=== PATIENT | female | born 1995 | race Caucasian/White ===

== ENCOUNTER 2020-12-02 21:45 | Emergency (ER) | payer OTHER, SELFPAY ==
[2020-12-02 22:01] VITALS: BP 118/74; PULSE 113; RESP 16; TEMP 36.7; O2SAT 100; BMI 24.7
--- NOTE | 2020-12-02 23:30 | PC.NURSE ---
at bedside for primary eval.
--- NOTE | 2020-12-02 23:31 | ED.GENADULT ---
HPI - General Adult General Chief complaint: General Medical Stated complaint: mutiple complaints Time Seen by Provider: 12/02/20 23:15 Source: patient Mode of arrival: ambulatory Limitations: no limitations History of Present Illness HPI narrative: Patient comes to emergency room complaining of ?not feeling well?. Earlier today, patient was seen at Urgent Care, she was prescribed penicillin for otitis media and for a dental infection that started a month ago. Patient complaining that she was recently told by her PCP that she has livedo reticularis and was told that she may have lupus. Patient complaining of nausea, weakness, fatigue. Patient has been seen and multiple facilities today for the same complaint. Related Data Allergies Allergy/AdvReac Type Severity Reaction Status Date / Time No Known Allergies Allergy Verified 12/02/20 22:06 Review of Systems Review of Systems: Constitutional : No Weight loss, No Fever, No Chills, No Night Sweats, complaining of fatigue, malaise ENT/Mouth : No Hearing loss, complaining of right ear pain, No Nasal Congestion, No sore throat, No Rhinorrhea, No Swallowing Difficulty Eyes: No Eye Pain, No Swelling, No Redness, No Foreign Body, No Discharge, No Vision Changes Cardiovascular : No Chest Pain, No SOB, No Dyspnea on Exertion, No Orthopnea, No Edema, No Palpitations Respiratory : No Cough, No Sputum, No Wheezing, No Smoke Exposure, No Dyspnea Gastrointestinal : Complaining of nausea, Vomiting, No Diarrhea, No Constipation, No abdominal Pain, No Hematochezia, No Melena Genitourinary : no irregular bleeding, No Dysuria, No Urinary Frequency, No Hematuria, No Urinary Incontinence, No Urgency, No Flank Pain, No Urinary Flow Changes, No Hesitancy Musculoskeletal : No joint pain, No Joint Swelling Skin : No Skin Lesions, complaining of weeks of ?livedo reticularis being present Neuro : No Weakness, No Numbness, No Paresthesias, No Loss of Consciousness, No Dizziness, No Headache Psych : No Anxiety/Panic, No Depression, No SI/HI/AH/VH, No Social Issues, Heme/Lymph: No Bruising, No Bleeding,No Lymphadenopathy Endocrine : No Polyuria, No Polydipsia, No Temperature Intolerance PMFSH Past Medical History Medical History delivery delivered No known health problems Social History Social History Advance Directives: No Advance Directives Information Provided: No Patient : No Physical Exam Vital Signs: Vital Signs: Last Vital Signs Temp 98.1 F 12/02/20 22:01 Pulse 113 H 12/02/20 22:01 Resp 16 12/02/20 22:01 BP 118/74 12/02/20 22:01 Pulse Ox 100 12/02/20 22:01 Body Mass Index 24.7 Appearance: Alert. Oriented X3. Sobbing Eyes: Pupils equal, round and reactive to light. ENT: Pharynx normal. Right ear is mildly erythematous, left ear the canal does look a bit swollen but not erythematous Neck: Normal inspection. Neck supple. No lymph nodes noted. CVS: Normal heart rate and rhythm. Pulses normal. Normal S1 and S2 Respiratory: No respiratory distress. Breath sounds normal. No Wheezing. No rales Abdomen: Soft and nontender. No rigidity. No distention. good BS x4 Skin: Skin warm and dry. Mottled in lower extremities Extremities: No edema, see above Neuro: Oriented X 3. No motor deficit. No sensory deficit. Moving all extermities. No slurred speech. Course Course Course Narrative: I was informed by the patient's nurse that the patient started complaining of facial swelling, shortness of breath. I immediately assessed the patient, patient is very anxious, screaming, patient's airway is intact, good lung sounds, no erythema, no rash. I discussed with the patient that her oxygen saturation is perfect, 100% on room air. Patient is no respiratory distress. I discussed with the patient that in a moment the tech and the nurse will be with her shortly. Patient states that she demands IV antibiotics. I discussed with the patient that IV treatment will depend on her lab work. At this time, there does not seem to be a significant otitis media infection. I was informed by the patient's tech that the patient refused labs, that they were taking too long, patient has been in the ER less than 30 minutes. Patient's tech told me that the patient refused blood work, refused COVID test, refused chest x-ray, refused IV placement. I was informed by the patient's nurse that the patient eloped Discharge Plan Discharge Clinical Impression: SOB (shortness of breath), Livedo reticularis, Pain, dental, Otitis media, Anxiety Patient Disposition: Elopement Interventions: ED Discharge Assessment Last Done: 12/03/20 00:02 Discharge Date/Time: 12/03/20 00:11
--- NOTE | 2020-12-03 00:01 | PC.NURSE ---
ekg tech at bedside for labs and Covid. Pt refusing all lab work, states I'm going to [facility]!! NOONE IS DOING ANYTHING FOR ME! Pt calling 911 from her cellphone and leaving the ED AMA.
--- NOTE | 2020-12-03 00:02 | PC.NURSE ---
hydrodynamicist aware.
== END 2020-12-03 00:11 | disposition left against medical advice (07) ==
PROVIDERS: Emergency Provider Emergency Medicine; PCP Nurse Practitioner Family
DX: R06.02 Shortness of breath (principal); H66.93 Otitis media, unspecified, bilateral; K08.89 Other specified disorders of teeth and supporting structures; F41.1 Generalized anxiety disorder; F43.0 Acute stress reaction; R23.1 Pallor
CPT/HCPCS: 99283

== ENCOUNTER 2022-03-11 12:49 | Outpatient (REF) | payer OTHER, SELFPAY ==
--- NOTE | ~2022-03-11 | XR_ITS ---
EXAMINATION: XR WRIST, LEFT CLINICAL INFORMATION: Pain COMPARISON: None TECHNIQUE: 4 views of the left wrist FINDINGS: There is a comminuted intra-articular distal radial fracture. Mild impaction. Slight dorsal angulation of the distal fragment. The carpal rows are well aligned. Soft tissue swelling. XR/XR wrist LT w scaphoid IMPRESSION: Intra-articular distal radial fracture with slight dorsal angulation.
== END 2022-03-11 12:50 | disposition home or self-care (01) ==
LOC: HO.HOSX 12:49
PROVIDERS: Visit Provider Orthopaedic Surgery
DX: S52.502A Unspecified fracture of the lower end of left radius, initial encounter for closed fracture (principal); V89.2XXA Person injured in unspecified motor-vehicle accident, traffic, initial encounter; Y93.9 Activity, unspecified; Y92.9 Unspecified place or not applicable; Y99.9 Unspecified external cause status
CPT/HCPCS: 73110; 99202

== ENCOUNTER 2022-03-13 08:57 | Outpatient (REF) | payer OTHER, SELFPAY ==
--- NOTE | ~2022-03-13 | CT_ITS ---
EXAMINATION: CT WRIST WITHOUT CONTRAST, LEFT CLINICAL INFORMATION: Wrist fracture. COMPARISON: Radiographs 03/11/2022. TECHNIQUE: A noncontrast CT of the left wrist is performed with sagittal and coronal reformats. This CT examination was performed using dose optimization techniques as appropriate, variously including the following: *Automated exposure control *Adjustment of mA and/or kV according to patient size (this includes techniques or standardized protocols for targeted exams where dose is matched to indication/reason for exam; i.e. extremities or head) *Use of iterative reconstruction technique DLP: 99 mGy-cm FINDINGS: No significant change in the alignment or appearance of the comminuted and impacted intra-articular fracture of the distal radius. There is dorsal angulation and up to 5 mm of dorsal displacement. Fragmentation and overriding is most prominent at the dorsal aspect, extending through January's tubercle. A hairline fracture extends along the distal radioulnar joint. No additional fracture is evident. CT/CT wrist LT wo con IMPRESSION: No significant change in the appearance of the comminuted intra-articular fracture of the distal radius with impaction, dorsal angulation and displacement. No additional fractures.
== END 2022-03-13 08:58 | disposition home or self-care (01) ==
LOC: HO.CT 08:57
PROVIDERS: Visit Provider Orthopaedic Surgery
DX: Z01.818 Encounter for other preprocedural examination (principal); S52.502A Unspecified fracture of the lower end of left radius, initial encounter for closed fracture
CPT/HCPCS: 73200; J1100; J2405

== ENCOUNTER 2022-03-13 09:20 | Day surgery (SDC) | payer OTHER, SELFPAY ==
--- NOTE | ~2022-03-13 | FL_ITS ---
EXAMINATION: XR FLUOROSCOPY WITH IMAGES CLINICAL INFORMATION: ORIF left arm COMPARISON: CT left wrist 03/13/2022, radiographs left wrist 03/11/2022 TECHNIQUE: Fluoroscopy performed by Dr. Cristine Dsouza. Fluoroscopy time: 91 seconds. Cumulative Dose: 2.45 mGy. DAP: 0.148 Gycm2. Images: 6. FINDINGS: The comminuted intra-articular fracture distal left radius is reduced with dorsal side plate and multiple screws. Fracture fragments are in near-anatomic alignment. The hardware is intact. There is no dislocation or destructive process. Ulnar variance is neutral. FL/FL guidance in OR IMPRESSION: Status post open reduction internal fixation distal left radial fracture.
[2022-03-13 10:27] VITALS: BMI 31.8
[2022-03-13 10:30] LABS: UPreg QC Valid YES; Urine Pregnancy NEGATIVE (NEGATIVE)
--- NOTE | 2022-03-13 10:34 | PC.NURSE ---
patient arrived very early. chose to wait in waiting room instead of leaving/returning. will bring into sss when space available.
[2022-03-13 11:04] VITALS: BP 145/82; PULSE 87; RESP 18; TEMP 36.5; O2SAT 98
--- NOTE | 2022-03-13 12:10 | P.OP_ITS ---
Operative Note Operative Note Date of Service: 03/13/22 Narrative: Operative Note Narrative: Preop diagnosis: 1. Left Distal radius fracture, comminuted and intra- articular Postop diagnosis: Same Procedure: 1. Left Distal radius fracture open reduction internal fixation, 3 part intra-articular Surgeon: Cristine Dsouza MD Anesthesia: General anesthesia plus regional block Findings: comminuted intra-articular distal radius fracture with significant depression of the lunate facet articular surface. Implants: A 3 hole standard Accu Med volar locking plate, with Five X 2.3 mm locking pegs/screws, and 3 3.5 mm cortical screws Tourniquet time: 80 minutes EBL: 5.0 ml Specimen: None Drains: None Complications: None Disposition: Brought to the recovery room in stable condition Plan: Follow-up in 10-14 days for wound check, suture removal and postop radiographs The patient will be placed in either a short-arm cast Encouraged no lifting of anything heavier than a cell phone. Please encourage active and passive range of motion of the digits. Follow-up at 4-5 weeks postop for repeat radiographs. Indications: The patient is a 26 year old woman with a 2-week-old comminuted intra-articular distal radius fracture . The risks and benefits of operative treatment, including but not limited to risk of damage to blood vessels, nerves, tendons, infection, recurrence, persistent pain or numbness, incomplete resolution of preoperative symptoms, or need for further surgery were discussed with the patient and they wished to proceed with surgery. Procedure: Once consent was obtained patient was brought back to the operating suite and placed in the operating table in a supine position. A regional block was performed by the anesthesia team. Perioperative antibiotics and anesthesia was administered by the anesthesia team. A tourniquet was applied to the proximal aspect of the left upper extremity and the limb was prepped and draped in a standard surgical fashion. The limb was elevated exsanguinated with Esmarch bandage and the tourniquet inflated to 250 mm of mercury for a total tourniquet time of 80 minutes. The FluoroScan was used throughout the case to assess our reduction, and facilitate implant placement. A gentle closed reduction was 1st performed on the patient's left distal radius fracture. The fracture was assessed radiographically before proceeding with the open reduction internal fixation. I then made an 8 cm longitudinal incision over the distal aspect of the flexor carpi radialis tendon. The incision was made through the skin to the subcutaneous tissue using a 15. Blade. we then carefully dissected down to flexor carpi radialis tendon she tenotomy scissors. The FCR tendon sheath was then incised longitudinally using tenotomy scissors under direct visualization. The FCR tendon was then retracted ulnarly. I then made a longitudinal incision in the volar forearm fascia through the floor of FCR tendon sheath using tenotomy scissors under direct visualization. I identified the interval between the radial artery and the flexor tendons. This interval was developed further with my index finger, releasing some of the muscular fibers of the flexor pollicis longus. A dull weatlander retractor was then placed. I then created an ulnarly based flap of the pronator quadratus by releasing the radial and distal edges using a 15. Blade. A Dotson elevator was used to elevate the pronator quadratus from the volar surface of the distal radius. This then revealed to us our distal radius fracture. An open reduction was then performed on our distal radius fracture. the fracture was significantly distal, particularly at the lunate facet where we saw significant compression and depression of the lunate facet articular surface. a small window was created by removing 1 of the small volar cortical bone fragments volar to the lunate facet. I was then able to pass a [place] elevator beneath the lunate facet articular surface and elevate the articular surface. The decision was made to place a 3 hole standard volar locking plate as it would provide for four screws beneath the articular surface. I felt that the locking screw beneath the lunate facet piece could do a good job of holding that portion of the articular surface in a more reduced position. I placed the 3 hole standard Accu Med volar locking plate on the volar surface of the distal radius. I placed a single K-wire through the distal aspect of the plate and into the distal radius. This was assessed using fluoroscopic images. I was satisfied with the placement of our plate. I then placed 5 X 2.3 mm l ocking screws/pegs in the distal aspect of the plate just proximal to the distal radius articular surface by 1st drilling bicortically with a 2.0 mm drill bit, measuring with a depth gauge, and placing the appropriate length locking screws/pegs. The placement of our plate and screws was then assessed again using fluoroscopic images. The once satisfied with the placement of the volar locking plate and screws on the distal aspect of the distal radius, the plate was then reduced to the shaft of the radius. I then placed 3 3.5 mm cortical screws to the proximal aspect of the plate and into the shaft of the radius. This was done by 1st drilling bicortically with a 2.8 mm drill bit, measuring with a depth gauge, and placing the appropriate length screw. Final radiographs were then obtained. The DRUJ was assessed and found to be stable on exam. I was satisfied with our reduction and placement of all implants. At this point the wound was irrigated with normal saline. The pronator quadratus was reduced back over the volar locking plate using some 3-0 Vicryl suture material. The tourniquet was then deflated and hemostasis was obtained with a brief period of local pressure and bipolar and monopolar electrocautery. The subcutaneous layer was then reapproximated using some 4-0 Vicryl suture, and the skin edges were reapproximated using some 5 0 Prolene suture. The wound was then infiltrated with some 0.5% plain ropivacaine for postop pain control. A sterile dressing and a short dorsal splint allowing for active flexion and extension of the digits was applied. The patient appears to have tolerated the procedure well and with no complications. All digits were well vascularized conclusion of the case.
--- NOTE | 2022-03-13 12:10 | MHC.SHP ---
Pre-Procedural Eval Section A Date of Service: 03/13/22 The patient is an INPATIENT: No Changes since office visit: No Cold of Flu in the past 2 weeks, No New Medical Problems, No Changes in Medication and No Patient answered all questions The History & Physical has been completed within 30 days and I have reviewed it.: Yes Section B Chief Complaint: fx of the lower end of left radius Allergies: Allergies Allergy/AdvReac Type Severity Reaction Status Date / Time No Known Allergies Allergy Verified 03/13/22 10:32 Plan I have reviewed the history and physical and performed a pertinent physical examination on my patient. No changes have occurred unless specified.
[2022-03-13 15:35] VITALS: BP 134/91; PULSE 108; RESP 16; TEMP 36.6; O2SAT 100
[2022-03-13 15:40] VITALS: BP 136/94; PULSE 107; RESP 18; O2SAT 98
[2022-03-13] MEDS: fentaNYL citrate/PF 100 MCG/2 ML VIAL 25 MCG IVPUSH ×2 (15:40→15:45)
[2022-03-13] MEDS: LORazepam 1 MG TABLET PO (15:41)
[2022-03-13 15:45] VITALS: BP 119/83; PULSE 98; RESP 20; RESP 22; O2SAT 98
[2022-03-13 15:50] VITALS: BP 112/76; PULSE 94; RESP 20; O2SAT 98
[2022-03-13 16:05] VITALS: BP 121/71; PULSE 94; RESP 20; O2SAT 98
[2022-03-13] MEDS: oxyCODONE HCl Immed Release 5 MG TABLET PO (16:25)
== END 2022-03-13 16:40 | disposition home or self-care (01) ==
PROVIDERS: Anesthesiology; Visit Provider Orthopaedic Surgery
PROC: (CPT 25609; principal; 2022-03-13 13:00)
DX: S52.572A Other intraarticular fracture of lower end of left radius, initial encounter for closed fracture (principal); M79.602 Pain in left arm; I73.00 Raynaud's syndrome without gangrene; V49.9XXA Car occupant (driver) (passenger) injured in unspecified traffic accident, initial encounter; W22.12XA Striking against or struck by front passenger side automobile airbag, initial encounter; Y93.89 Activity, other specified; Y92.410 Unspecified street and highway as the place of occurrence of the external cause; Y99.8 Other external cause status
CPT/HCPCS: 25609; 81025; C1713; J0690; J2250; J2795; J3010

== ENCOUNTER → 2022-03-20 13:04 | Outpatient (BNVA) | payer OTHER, SELFPAY | PROVIDERS: Visit Provider Physician Assistant | DX: S52.502D Unspecified fracture of the lower end of left radius, subsequent encounter for closed fracture with routine healing (principal) | CPT/HCPCS: 29085 ==

== ENCOUNTER 2022-03-28 10:29 | Outpatient (REF) | payer OTHER, SELFPAY ==
--- NOTE | ~2022-03-28 | XR_ITS ---
EXAMINATION: XR WRIST, LEFT CLINICAL INFORMATION: Pain. COMPARISON: Fluoroscopy dated 03/13/2022; CT wrist dated 03/13/2022; left wrist radiographs dated 03/11/2022. TECHNIQUE: PA, lateral, and oblique views of the left wrist. FINDINGS: There is bony demineralization. There is an intact fixator plate applied to a comminuted fracture of the distal left radius. There is good alignment of fracture fragments, without significant callus formation. The fixator plate and screws show no loosening or failure. No dislocation is seen. There is no soft tissue gas or foreign body. XR/XR wrist LT min 3V IMPRESSION: There is stable, well-maintained alignment status-post ORIF of a distal left radial fracture. Persistent fracture lines are seen, and there is no significant callus formation. No hardware failure or loosening is seen.
== END 2022-03-28 10:30 | disposition home or self-care (01) ==
LOC: HO.HOSX 10:29
PROVIDERS: Visit Provider Physician Assistant
DX: S52.502D Unspecified fracture of the lower end of left radius, subsequent encounter for closed fracture with routine healing (principal)
CPT/HCPCS: 29085; 73110

== ENCOUNTER 2022-05-01 | Outpatient (REF) | payer OTHER, SELFPAY ==
--- NOTE | ~2022-05-01 | XR_ITS ---
EXAMINATION: XR WRIST, LEFT CLINICAL INFORMATION: Fracture distal radius status post reduction. COMPARISON: Radiographs left wrist 03/28/2022, 03/11/2022, CT left wrist 03/13/2022. TECHNIQUE: PA, lateral, and oblique views of the left wrist. FINDINGS: Distal left radial fracture is reduced with volar side plate and multiple screws. Hardware is intact. There is anatomic alignment. Ulnar variance is essentially neutral. Fracture lines are less distinct. There is no destructive process or osteolysis. No acute bony abnormality. XR/XR wrist LT min 3V IMPRESSION: Status post reduction distal left radial fracture. Hardware intact. Anatomic alignment.
== END 2022-05-01 00:01 | disposition home or self-care (01) ==
LOC: HO.HOSX
PROVIDERS: Visit Provider Physician Assistant
DX: M25.532 Pain in left wrist (principal)
CPT/HCPCS: 73110

== ENCOUNTER 2025-01-03 13:50 | Inpatient (IN) | payer OTHER, SELFPAY ==
[2025-01-03 14:10] VITALS: BP 107/65; PULSE 70; RESP 17; TEMP 36.8; O2SAT 98
[2025-01-03 14:59] VITALS: BMI 27.1
--- OUTSIDE RECORDS SUMMARY | 2025-01-03 15:52 | XMS_ITS ---
Author Name [facility] Organization Unknown Encounters Encounter Type Encounter Reason Primary Diagnosis Location Date Emergency Fall Fall [place] [facility] [employer] 07/11/2024 Care Team Organization Name Specialty Phone Email Start Date End [facility] [place] [facility] 07/15/2024 10/05/2024 [place] [facility] 07/12/2024
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
[2025-01-03 20:00] VITALS: BP 97/55; PULSE 62; TEMP 37.2; O2SAT 97
[2025-01-03] MEDS: traZODone HCL 50 MG TABLET PO (21:44)
[2025-01-03] MEDS: hydrOXYzine HCL 25 MG TABLET PO (22:13)
[2025-01-04 08:00] VITALS: BP 96/53; PULSE 61; TEMP 37.1; O2SAT 97
[2025-01-04 08:36] LABS: Estimated Average Glucose 103 mg/dL; Hemoglobin A1c % 5.2 % (<6.0)
[2025-01-04 08:51] LABS: Cholesterol 129 mg/dL (<200); HDL Cholesterol 42 mg/dL (>40); LDL Cholesterol Calculated 74 mg/dL (<100); Triglycerides 66 mg/dL (<150)
[2025-01-04 09:01] LABS: Free T4 (Free Thyroxine) 1.13 ng/dL (0.71-1.85); Thyroid Stimulating Hormone 0.84 uIU/mL (0.32-4.0)
[2025-01-04 09:13] LABS: Folate 6.8 ng/mL (> or = 4.0); Vitamin B12 479 pg/mL (200-900)
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
[2025-01-04] MEDS: DULoxetine HCl 60 MG CAPSULE.DR PO (14:43)
[2025-01-04] MEDS: risperiDONE 0.25 MG TABLET PO (14:43)
[2025-01-05 08:00] VITALS: BP 92/51; PULSE 65; TEMP 37.2; O2SAT 99
[2025-01-05] MEDS: DULoxetine HCl 60 MG CAPSULE.DR PO (08:55)
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
[2025-01-05] MEDS: hydrOXYzine HCL 25 MG TABLET PO ×2 (14:34→21:36)
[2025-01-05] MEDS: risperiDONE 0.25 MG TABLET PO ×2 (14:34→21:41)
[2025-01-05] MEDS: traZODone HCL 50 MG TABLET PO (21:36)
[2025-01-06 00:21] VITALS: BP 106/68; PULSE 113; RESP 20; TEMP 36.4; O2SAT 98
[2025-01-06 08:00] VITALS: BP 120/76; PULSE 86; TEMP 36.3; O2SAT 96
[2025-01-06] MEDS: DULoxetine HCl 60 MG CAPSULE.DR PO (08:56)
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
[2025-01-06 20:00] VITALS: BP 104/49; PULSE 91; TEMP 36.7; O2SAT 98
[2025-01-06] MEDS: risperiDONE 1 MG TABLET PO (21:49)
[2025-01-06] MEDS: traZODone HCL 50 MG TABLET PO (21:49)
[2025-01-06] MEDS: hydrOXYzine HCL 50 MG TABLET PO (21:50)
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
[2025-01-07] MEDS: DULoxetine HCl 60 MG CAPSULE.DR PO (09:09)
[2025-01-07 13:36] VITALS: TEMP 38
[2025-01-07 14:41] LABS: Influenza A PCR NEGATIVE (Negative); Influenza B PCR NEGATIVE (Negative); Resp Syncy Virus RNA Qual PCR NEGATIVE (Negative); SARS COV2 PCR INHOUSE NEGATIVE (Negative)
--- NOTE | 2025-01-07 15:02 | MHC.RECOVRN ---
Addiction Consult Met with pt in - after receiving addiction consult to discuss SIRISHA, recovery supports, and other resources. Pt declined outpatient SIRISHA appointment for tx as she is planning on moving to [place] to stay with her grandma for extra support. Pt wants to explore SIRISHA treatment options in the [place] area with SW. Pt is interested in discussing with Addiction Medicine provider about potential meds for her SIRISHA. Written materials provided and reviewed with pt including list of CSS and IOPs, info on harm reduction, NA meetings, and recovery coaching. No further questions/concerns at this time. Encouraged pt to reach out if anything arises. Has [facility] contact phone #. Discussed with Honey Cedillo NP.
[2025-01-07 15:19] LABS: IDNOW Serial# 55D5AD1C; Strep A Nucleic Acid Positive (Negative)
[2025-01-07] MEDS: Amoxicillin 500 MG CAPSULE PO (15:52)
[2025-01-07] MEDS: Throat Lozenge, Medicated LOZENGE 1 LOZENGE MUCOUS MEM ×3 (15:52→20:40)
[2025-01-07 20:00] VITALS: BP 91/50; PULSE 78; TEMP 37.6; O2SAT 96
[2025-01-07] MEDS: traZODone HCL 50 MG TABLET PO (20:40)
[2025-01-07] MEDS: hydrOXYzine HCL 50 MG TABLET PO (20:40)
[2025-01-07] MEDS: risperiDONE 1 MG TABLET PO (20:40)
[2025-01-08] MEDS: Amoxicillin 500 MG CAPSULE PO ×2 (03:56→14:48)
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
[2025-01-08] MEDS: Throat Lozenge, Medicated LOZENGE 1 LOZENGE MUCOUS MEM (09:36)
[2025-01-08] MEDS: DULoxetine HCl 60 MG CAPSULE.DR PO (09:36)
[2025-01-08 20:00] VITALS: BP 108/60; PULSE 83; TEMP 37.1; O2SAT 100
[2025-01-08] MEDS: Cyclobenzaprine HCl 5 MG TABLET PO (22:43)
[2025-01-08] MEDS: risperiDONE 1 MG TABLET PO (22:45)
[2025-01-08] MEDS: hydrOXYzine HCL 50 MG TABLET PO (22:46)
[2025-01-08] MEDS: traZODone HCL 50 MG TABLET PO (22:46)
[2025-01-09] MEDS: Amoxicillin 500 MG CAPSULE PO ×2 (07:09→18:53)
[2025-01-09] MEDS: DULoxetine HCl 60 MG CAPSULE.DR PO (08:22)
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
[2025-01-09] MEDS: Cyclobenzaprine HCl 5 MG TABLET PO (18:53)
[2025-01-09 20:00] VITALS: BP 104/55; PULSE 81; RESP 18; TEMP 36.9; O2SAT 99
[2025-01-09] MEDS: risperiDONE 1 MG TABLET PO (21:37)
[2025-01-09] MEDS: hydrOXYzine HCL 50 MG TABLET PO (21:37)
[2025-01-09] MEDS: traZODone HCL 50 MG TABLET PO (21:37)
[2025-01-09 23:44] LABS: C. Trachomatis RNA TMA, Throat NOT DETECTED (NOT DETECTED); N. gonorrhoeae RNA TMA, Throat NOT DETECTED (NOT DETECTED)
[2025-01-10] MEDS: Amoxicillin 500 MG CAPSULE PO ×2 (06:57→19:13)
[2025-01-10] MEDS: DULoxetine HCl 60 MG CAPSULE.DR PO (08:29)
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
[2025-01-10] MEDS: Cyclobenzaprine HCl 10 MG TABLET PO (19:14)
[2025-01-10 20:00] VITALS: BP 96/51; PULSE 86; RESP 18; TEMP 36.8; O2SAT 99
[2025-01-10] MEDS: risperiDONE 1 MG TABLET PO (21:18)
[2025-01-10] MEDS: traZODone HCL 50 MG TABLET PO (21:18)
[2025-01-10] MEDS: Topiramate 25 MG TABLET PO (21:18)
[2025-01-10] MEDS: hydrOXYzine HCL 50 MG TABLET PO (21:18)
[2025-01-11] MEDS: Amoxicillin 500 MG CAPSULE PO ×2 (06:21→21:54)
[2025-01-11] MEDS: Cyclobenzaprine HCl 10 MG TABLET PO ×2 (08:54→21:54)
[2025-01-11] MEDS: DULoxetine HCl 60 MG CAPSULE.DR PO (08:54)
[2025-01-11] MEDS: Topiramate 25 MG TABLET PO ×2 (08:54→21:56)
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
[2025-01-11 19:53] VITALS: BP 99/60; PULSE 74; RESP 18; TEMP 37.3; O2SAT 98
[2025-01-11] MEDS: traZODone HCL 50 MG TABLET PO (21:54)
[2025-01-11] MEDS: risperiDONE 1 MG TABLET PO (21:54)
[2025-01-12] MEDS: Topiramate 25 MG TABLET PO ×2 (09:01→22:06)
[2025-01-12] MEDS: DULoxetine HCl 60 MG CAPSULE.DR PO (09:01)
[2025-01-12] MEDS: Amoxicillin 500 MG CAPSULE PO ×2 (09:01→22:04)
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
[2025-01-12 20:00] VITALS: BP 105/58; PULSE 89; TEMP 37.1; O2SAT 98
[2025-01-12] MEDS: traZODone HCL 50 MG TABLET PO (22:04)
[2025-01-12] MEDS: Cyclobenzaprine HCl 10 MG TABLET PO (22:05)
[2025-01-13] MEDS: Amoxicillin 500 MG CAPSULE PO (08:40)
[2025-01-13] MEDS: DULoxetine HCl 60 MG CAPSULE.DR PO (08:40)
[2025-01-13] MEDS: Topiramate 25 MG TABLET PO (08:40)
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
== END 2025-01-13 11:20 | DRG 751 ==
PROVIDERS: Clinical Nurse Specialist Psychiatric/Mental Health, Adult; Admitting Provider Psychiatry & Neurology Psychiatry; Visit Provider Psychiatry & Neurology Psychiatry
DX: F32.3 Major depressive disorder, single episode, severe with psychotic features (principal); R45.851 Suicidal ideations; M32.9 Systemic lupus erythematosus, unspecified; F41.1 Generalized anxiety disorder; F17.210 Nicotine dependence, cigarettes, uncomplicated; J02.0 Streptococcal pharyngitis; Z71.6 Tobacco abuse counseling; I73.00 Raynaud's syndrome without gangrene; N93.9 Abnormal uterine and vaginal bleeding, unspecified; F14.10 Cocaine abuse, uncomplicated; F43.10 Post-traumatic stress disorder, unspecified; Z79.899 Other long term (current) drug therapy
CPT/HCPCS: 0241U; 36415; 80061; 82607; 82746; 83036; 83735; 84439; 84443; 87491; 87591; 87651

== ENCOUNTER → 2025-01-03 13:50 | Outpatient (BNV) | payer OTHER, SELFPAY | PROVIDERS: Admitting Provider Psychiatry & Neurology Psychiatry; Visit Provider Nurse Practitioner Family | DX: F32.3 Major depressive disorder, single episode, severe with psychotic features (principal); F14.10 Cocaine abuse, uncomplicated; F41.1 Generalized anxiety disorder; F43.11 Post-traumatic stress disorder, acute | CPT/HCPCS: 99231; 99232 ==

== ENCOUNTER → 2025-01-03 13:50 | Outpatient (BNV) | payer MEDICAID, SELFPAY | PROVIDERS: Admitting Provider Psychiatry & Neurology Psychiatry; Visit Provider Nurse Practitioner Family | DX: M32.9 Systemic lupus erythematosus, unspecified (principal) | CPT/HCPCS: 99221 ==

== ENCOUNTER 2025-01-19 15:51 | Inpatient (IN) | payer OTHER, SELFPAY ==
--- NOTE | 2025-01-19 16:08 | ED.PSYCH ---
HPI - Psych General Chief Complaint: Psychiatric Symptoms Stated Complaint: sect 12, SI Time Seen by Provider: 01/19/25 16:07 Source: patient, EMS, RN notes reviewed and old records reviewed Mode of arrival: EMS History of Present Illness ED Provider: Day HPI Narrative: Patient is a 29-year-old female with reported history of cocaine use disorder, anxiety, panic attacks, depression, PTSD, insomnia, lupus, arthritis presenting to the Emergency Department on a section 12 for erratic behavior. Patient reportedly self presented to the police department today requesting assistance with witnessed protection, stating that she is being stalked by drug suppliers from [place] in [place]. She states that she is currently living with her aunt but that they know where she lives and she feels unsafe there/everywhere. When advised that the hospital staff will not be able to assist her with witness protection as this is a law enforcement issue, she abruptly states then I'm going to kill myself. States plan is to jump off a bridge. Denies homicidal ideation, auditory or visual hallucinations. Recently inpatient here from 01/04/25 to 01/13/25. Denies current physical complaints. MD complaint: suicidal ideation Related Data Previous Rx's ?Medication ?Instructions ?Recorded cyclobenzaprine 10 mg tablet 10 mg PO BID PRN back pain #60 tabs 01/12/25 duloxetine 60 mg capsule,delayed 60 mg PO DAILY depression #30 caps 01/12/25 release hydroxyzine HCl 50 mg tablet 50 mg PO Q6H PRN mild anxiety #30 01/12/25 tabs nicotine (polacrilex) 4 mg gum 4 mg buccal Q2H PRN Nicotine 01/12/25 Cravings #50 ea risperidone 1 mg tablet 1 mg PO BID PRN Hallucinations #14 01/12/25 tabs topiramate 25 mg tablet 25 mg PO BID MAT #60 tabs 01/12/25 trazodone 50 mg tablet 50 mg PO BEDTIME PRN Insomnia #30 01/12/25 tabs Allergies Allergy/AdvReac Type Severity Reaction Status Date / Time No Known Allergies Allergy Verified 01/19/25 16:26 Review of Systems Review of Systems: As per HPI Yes all other systems are reviewed and are negative Constitutional: Constitutional: Reports as per HPI PMFSH Past Medical History Medical History delivery delivered No known health problems Social History Social History Household Members: None Housing: Homeless Do you presently have visiting nurse or other home services: No Patient Tobacco Use Status: Current everyday Tobacco user Tobacco use type: Cigarette and Smokeless Tobacco Cigarette Packs Per Day: 0.5 Cigarettes Per Day: 10.0 Smoked in Last 30 Days: Yes e-Cigarette/Vaping Use: Currently Using Patient Interested in Nicotine Replacement: Yes Patient Given Instructions on How to Stop Smoking: Yes Date Education Initiated: 01/19/25 Second Hand Smoke Exposure: No Use of substances other than those prescribed or required for medical reasons: Yes Substance Use Type: Crack/Cocaine Currently Displaying Signs/Symptoms of Drug Intoxication Withdrawal: No Have you been hit, kicked, punched, or otherwise hurt by someone within the past year? 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 Blood pressure normal. Heart rate normal. Respiratory rate normal. Temperature normal. Oxygen saturation normal. Const: General: cooperative and no acute distress Orientation/consciousness: oriented to person, oriented to place, oriented to time and patient oriented x3 HEENT: Head: Yes normocephalic and Yes atraumatic Ears: external ears normal General nose exam: Normal external nose present Face and sinus: Yes face symmetric Mouth: oropharynx normal and moist mucous membranes Throat: Yes uvula midline Eyes: Pupils: Equal, round and reactive pupils present Neck: Neck: Yes normal visual inspection and Yes supple Resp: Effort & Inspection: normal respiratory effort and able to speak in complete sentences Auscultation: clear to auscultation bilaterally Cardio: Rate: regular rate Rhythm: regular rhythm Heart sounds: S1 normal heart sound present and S2 normal heart sound present GI: Palpation (GI): Soft to palpation and nontender Auscultation: normoactive bowel sounds : General: Yes no CVA tenderness Back/Spine/Pelvis: Back: no CVA tenderness Skin: General skin exam: elasticity normal and turgor normal Neuro: General: oriented to person, oriented to place, oriented to time, patient oriented x3, moves all extremities, no focal motor deficits and CN's II-XI intact bilaterally Cranial nerves: Yes Equal, round and reactive pupils present Cognition (Neuro): normal cognition Extrem: General: Yes full ROM, Yes no pedal edema and Yes no calf tenderness Psych: Mental Status: mental status grossly normal Speech and movement: Pressured speech present Affect: Anxious affect present Attitude: Guarded attititude/behavior present Thought content: Suicidality present, no homicidality and no hallucinations Insight: Limited insight present (Psych) Judgement: Limited judgement present (Psych) Course Reevaluation(s) Reevaluation #1: Gianni Brito MD Care team believes this patient is having paranoid delusions and needs inpatient level of care. 01/19/20251912 22:20: I was asked by behavioral health team to evaluate the patient she was complaining about wrist pain and concerned about sunburn. Patient was difficult to evaluate and interview but she complained of pain in the wrists from site of hand cuffs she does have some mild bruising here but there is no focal bony tenderness she is well-perfused and the compartments are soft. She has good range with flexion and radial and ulnar deviation both wrists. Doubt acute bony injury she may have contusions of the wrists. There is very mild sunburn in the back of the neck and no other significant or high-grade eller on the body. Gianni Brito MD Medications Administered Generic Name Dose Route Start Last Admin Trade Name Freq PRN Reason Stop Dose Admin Cyclobenzaprine HCl 10 mg 01/19/25 22:41 01/21/25 21:11 Cyclobenzaprine Hcl 10 Mg Tablet PO 10 mg BID PRN Administration back pain Divalproex Sodium 1,000 mg 01/20/25 21:00 01/21/25 21:42 Divalproex Sodium Er 500 Mg Tab.Er.24h PO 1,000 mg BEDTIME MARIA G Administration Duloxetine HCl 40 mg 01/21/25 09:00 01/21/25 12:09 Duloxetine Hcl 20 Mg Capsule. PO 40 mg DAILY MARIA G Administration Hydroxyzine HCl 50 mg 01/19/25 22:41 01/21/25 21:11 Hydroxyzine Hcl 50 Mg Tablet PO 50 mg Q6H PRN Administration mild anxiety Nicotine 21 mg 01/20/25 09:00 01/21/25 10:50 Nicotine 21 Mg Patch.Td24 TRANSDERMA Not Given DAILY MARIA G Risperidone 1 mg 01/20/25 21:00 01/21/25 21:11 Risperidone 1 Mg Tablet PO 1 mg BID MARIA G Administration Discontinued Medications Generic Name Dose Route Start Last Admin Trade Name Ianq PRN Reason Stop Dose Admin Duloxetine HCl 60 mg 01/20/25 09:00 01/20/25 08:59 Duloxetine Hcl 60 Mg Capsule. PO 60 mg DAILY MARIA G Administration Topiramate 25 mg 01/20/25 09:00 01/20/25 08:59 Topiramate 25 Mg Tablet PO 25 mg BID MARIA G Administration Medical Decision Making Medical Decision Making [facility] Narrative: Patient is a 29-year-old female with reported history of cocaine use disorder, anxiety, panic attacks, depression, PTSD, insomnia, lupus, arthritis presenting to the Emergency Department on a section 12 for erratic behavior. On exam patient is awake, A+Ox3, VS WNL, afebrile, normal neurological exam without focal deficits, physical exam findings as above. Given reported symptoms and physical exam findings, initial differential includes but is not limited to anxiety, depression, suicidal ideation, drug or alcohol intoxication. Plan for medical clearance, then CARE team evaluation. Labs notable for anemia not at level requiring transfusion, otherwise unremarkable. Ethanol negative. Will medically clear patient at this time for CARE team eval. UA/urine drug screen pending. Differential Diagnosis Differential Diagnoses: The differential diagnosis associated with the presentation includes As per [facility] Admission/Observation Consideration of admission/observation: Escalation of care including admission/observation considered Patient would have been admitted to the hospital had their work up had any findings where hospital admission was appropriate and their clinical presentation warranted hospital admission. Consult Healthcare Provider Management of the patient was discussed with: Behavioral Health Provider Lab Data [facility] Lab Attestation statement: I reviewed the patient's lab results. As per [facility] 01/19/25 16:44 01/19/25 16:44 Labs: Lab Results 01/19/25 Range/Units 16:44 WBC 5.9 (4.8-10.8) X10*3/uL RBC 4.18 L (4.20-5.50) X10*6/uL Hgb 10.9 L (12.0-16.0) g/dl Hct 33.3 L (37.0-47.0) % MCV 79.7 L (80.0-98.0) fL MCH 26.1 L (27.0-33.0) pg MCHC 32.7 (31.0-35.0) g/dl RDW 15.3 (11.0-16.0) % Plt Count 302 (160-400) X10*3/uL MPV 10.8 (9.4-12.3) fL Immature Gran % (Auto) 0.3 (0.0-0.4) % Neut % (Auto) 61.1 (45-73) % Lymph % (Auto) 28.6 (20-40) % [place] % (Auto) 6.9 (2-11) % Eos % (Auto) 2.4 (0-4) % Baso % (Auto) 0.7 (0-2) % Lymph # (Auto) 1.7 (1.2-4.9) X10*3/uL [place] # (Auto) 0.4 (0.1-1.2) X10*3/uL Eos # (Auto) 0.1 (0.0-0.4) X10*3/uL Baso # (Auto) 0.0 (0.0-0.2) X10*3/uL Abs Immat Gran (auto) 0.02 (0.00-0.03) X10*3/uL Absolute Neuts (auto) 3.6 (2.0-8.3) x10*3/uL Absolute Nucleated RBC 0.000 (0.0-0.012) X10*3/uL Nucleated RBC % (auto) 0.0 (0.0-0.2) /100WBC Sodium 140 (135-145) mmol/L Potassium 3.7 (3.3-5.1) mmol/L Chloride 107 (96-108) mmol/L Carbon Dioxide 26 (22-29) mmol/L Anion Gap 11 L (12-20) BUN 11 (9-16) mg/dL Creatinine 0.75 (0.5-1.4) mg/dL Estim Creat Clear Calc 103.5 Estimated GFR > 60 Random Glucose 119 H (60-115) mg/dL Calcium 9.1 (8.4-10.2) mg/dL Total Bilirubin 0.4 (0.0-1.0) mg/dL AST 26 (5-31) U/L ALT 26 (0-31) U/L Alkaline Phosphatase 77 (39-117) U/L Total Protein 7.0 (6.5-8.0) g/dL Albumin 4.3 (3.5-5.0) g/dL Beta HCG, Quant < 2 mIU/mL Ethyl Alcohol < 10 mg/dL Independent Historian Clinical information obtained from an independent historian. History obtained from or confirmed by: EMS External Record Review External record reviewed: Inpatient record, Office record and Outpatient record Discharge Plan Discharge Clinical Impression: Suicidal ideation, Acute anxiety Patient Disposition: Admitted As Inpatient Interventions: Admission Worksheet (ED) Last Done: 01/19/25 23:28 Discharge Date/Time: 01/19/25 23:28
[2025-01-19 16:21] VITALS: BP 112/72; BP 116/65; PULSE 73; PULSE 78; RESP 18; TEMP 36.8; O2SAT 98; O2SAT 99; BMI 24.7
--- NOTE | 2025-01-19 16:45 | PC.NURSE ---
pt given something to eat/drink, additionally patient allowed labs to be drawn, she is aware we need a urine.
[2025-01-19 16:51] LABS: MANUAL DIFF FLAG NO
--- NOTE | 2025-01-19 17:00 | PHA.MEDREC ---
Addendum entered by Naif Comer RPh 01/19/25 17:57: MED REC REVIEWED BY [facility] Original Note: Pharmacy Consult ? Medication Reconciliation Pharmacy has completed the medication reconciliation. Spoke with pt nurse and she stated pt not able to talk to at this time due to experiencing audio/visual hallucinations. I found pt was just admitted on our M5 unit and started on 7 new medications (Cyclobenzaprine, Duloxetine, Hydroxyzine, Nicotine, Risperidone, Topiramete and Trazodone) that were sent to [facility], [facility] and when I called [facility], they stated the meds are in their bin waiting for the pt to clam picker; I kept those medications on the med rec since pt should be on.
[2025-01-19 17:01] LABS: Hematocrit 33.3 % (37.0-47.0); Hemoglobin 10.9 g/dl (12.0-16.0); Imm Gran Abs Auto 0.02 X10*3/uL (0.00-0.03); Imm Gran Pct Auto 0.3 % (0.0-0.4); Lymphocytes Absolute Auto 1.7 X10*3/uL (1.2-4.9); Mean Corpuscular HGB Conc 32.7 g/dl (31.0-35.0); Mean Corpuscular Hemoglobin 26.1 pg (27.0-33.0); Mean Corpuscular Volume 79.7 fL (80.0-98.0); NRBC Abs Auto 0.000 X10*3/uL (0.0-0.012); NRBC Pct Auto 0.0 /100WBC (0.0-0.2); Platelet Count 302 X10*3/uL (160-400); Red Blood Count 4.18 X10*6/uL (4.20-5.50); White Blood Count 5.9 X10*3/uL (4.8-10.8)
[2025-01-19 17:17] LABS: Alanine Aminotransferase 26 U/L (0-31); Albumin Level 4.3 g/dL (3.5-5.0); Alkaline Phosphatase 77 U/L (39-117); Anion Gap 11 (12-20); Aspartate Amino Transferase 26 U/L (5-31); Blood Urea Nitrogen 11 mg/dL (9-16); Calcium 9.1 mg/dL (8.4-10.2); Carbon Dioxide 26 mmol/L (22-29); Chloride 107 mmol/L (96-108); Creatinine Clr Calc Pharmacy 103.5; Estimated Glomerular Filt Rate > 60; Potassium 3.7 mmol/L (3.3-5.1); Sodium 140 mmol/L (135-145); Total Protein 7.0 g/dL (6.5-8.0)
--- NOTE | 2025-01-19 19:11 | PC.NURSE ---
Assumed care of patient at 19:00, patient currently resting in bed, eyes closed, even chest wall rise and fall noted, RR 16.
--- NOTE | 2025-01-19 21:40 | ECG_ITS ---
Test Reason : IMPATIENT PROVIDER ORDER Blood Pressure : */* mmHG Vent. Rate : 74 BPM Atrial Rate : 74 BPM P-R Int : 130 ms QRS Dur : 80 ms QT Int : 380 ms P-R-T Axes : 48 76 44 degrees QTcB Int : 421 ms Normal sinus rhythm Normal ECG No previous ECGs available Referred By: Amanda Bernstein Electronically Signed By: ERIKA PLASCENCIA MD
--- NOTE | 2025-01-19 21:49 | PC.NURSE ---
EKG completed by Tom forest technician per verbal order from inpatient provider.
--- NOTE | 2025-01-19 22:51 | PC.NURSE ---
Urine sample collected via clean catch and sent to lab for processing. Patient noted ambulating to restroom and back to her room independently, gait is steady. Patient reports mild burning discomfort to bilateral shoulders, arms d/t sunburn. Skin is intact, no erythema/blisters noted. Patient is alert and oriented to self, place, was not able to state current date, reports SI with no plan, denies HI. Patient requested and provided dudley joan, robert cookies, tuna sandwich, tolerated well.
[2025-01-19 22:52] LABS: Appearance Urine Turbid; Glucose Urine UA Negative (Negative); PH 7.0 (5.0-9.0); Specific Gravity - Urine 1.025 (1.005-1.025); UMIC TRIGGER UACC YES
[2025-01-19 22:57] LABS: UACC Culture Trigger YES
[2025-01-19 23:01] LABS: Cannabinoid Screen Urine Not Detected (Not Detect)
--- NOTE | 2025-01-19 23:24 | PC.NURSE ---
Took over care from BINTA Zhang at 23:00, provider into see pt, Verbal report given to RN, pt being difficult about getting out of bed into wheel chair, pt changing back into gown, got in wheel chair, security and [facility] TEch transporting to unit.
[2025-01-20 05:25] VITALS: BP 131/80; PULSE 64; RESP 14; TEMP 36.5; O2SAT 97
[2025-01-20 05:26] VITALS: BMI 25.8
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
[2025-01-20 07:51] VITALS: BP 102/71; PULSE 78; RESP 16; TEMP 3; TEMP 37.4; O2SAT 98
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
[2025-01-20 15:28] VITALS: BP 109/55; PULSE 68; RESP 16; TEMP 36.5; O2SAT 97
[2025-01-20 20:00] VITALS: RESP 16
--- NOTE | 2025-01-21 13:59 | HO.PSYCHPN ---
Subjective Subjective Date of Service: 01/21/25 Reason For Visit: SI with plan to kill herself Interim History: no issues. appears to have slept late. per staff, slept 8 hours. taking meds. mostly in her room. Mental Status Exam Mental Status Exam Narrative: Appearance: disheveled, own clothes, hygiene is adequate Behavior: cooperative. Eye contact is WNL, and pt is calm Speech: nml rate and amount. Thought process: linear Thought content: no paranoid delusions expressed Mood: not assessed Affect: Constricted, mood-congruent, normo-intense SI: Denies HI: Denies VH/AH: denies Insight/judgment: insight and judgment are impaired Memory/cog: Alert, oriented x 4. grossly intact to conversational testing Diagnostics Vital Signs (24Hr): Vital Signs - 24 hr 01/20/25 15:28 01/20/25 20:00 Temperature 97.7 F Pulse Rate 68 Respiratory Rate 16 16 Blood Pressure 109/55 L Pulse Oximetry 97 Oxygen Delivery Method Room Air BMI result Body Mass Index 25.8 Labs 01/19/25 16:44 01/19/25 16:44 Labs: Laboratory Results - last 48 hr 01/19/25 01/19/25 16:44 22:44 WBC 5.9 RBC 4.18 L Hgb 10.9 L Hct 33.3 L MCV 79.7 L MCH 26.1 L MCHC 32.7 RDW 15.3 Plt Count 302 MPV 10.8 Immature Gran % (Auto) 0.3 Neut % (Auto) 61.1 Lymph % (Auto) 28.6 [place] % (Auto) 6.9 Eos % (Auto) 2.4 Baso % (Auto) 0.7 Lymph # (Auto) 1.7 [place] # (Auto) 0.4 Eos # (Auto) 0.1 Baso # (Auto) 0.0 Abs Immat Gran (auto) 0.02 Absolute Neuts (auto) 3.6 Absolute Nucleated RBC 0.000 Nucleated RBC % (auto) 0.0 Sodium 140 Potassium 3.7 Chloride 107 Carbon Dioxide 26 Anion Gap 11 L BUN 11 Creatinine 0.75 Estim Creat Clear Calc 103.5 Estimated GFR > 60 Random Glucose 119 H Calcium 9.1 Total Bilirubin 0.4 AST 26 ALT 26 Alkaline Phosphatase 77 Total Protein 7.0 Albumin 4.3 Beta HCG, Quant < 2 Urine Color Yellow Urine Appearance Turbid Urine pH 7.0 Ur Specific [place] 1.025 Urine Protein Negative Urine Glucose (UA) Negative Urine Ketones Trace Urine Blood Negative Urine Nitrite Negative Ur Leukocyte Esterase Small (1+) H Urine RBC 0-2 Urine WBC 6-10 H Ur Squamous Epith Cells 11-20 Urine Bacteria 2+ Hyaline Casts 0-2 Urine Opiates Screen Not Detected Ur Buprenorphine Scrn Not Detected Ur Oxycodone Screen Not Detected Urine Methadone Screen Not Detected Urine Fentanyl Screen POSITIVE H Ur Barbiturates Screen Not Detected Ur Phencyclidine Scrn Not Detected Ur Amphetamines Screen Not Detected U Benzodiazepines Scrn Not Detected Urine Cocaine Screen POSITIVE H U Marijuana (THC) Screen Not Detected Ethyl Alcohol < 10 Medications Medications Current Medications Acetaminophen (Acetaminophen 325 Mg Tablet) 650 mg PO Q6H PRN PRN Reason: Headache/Pain, Scale 1-10 Al Hydroxide/Mg Hydroxide (Magnesium Hydrox/Alum Hydrox 30 Ml Oral.Susp) 30 ml PO Q6H PRN PRN Reason: Heartburn/Nausea Cyclobenzaprine HCl (Cyclobenzaprine Hcl 10 Mg Tablet) 10 mg PO BID PRN PRN Reason: back pain Divalproex Sodium (Divalproex Sodium Er 500 Mg Tab.Er.24h) 1,000 mg PO BEDTIME [facility] Last Admin: 01/20/25 22:10 Dose: 1,000 mg Duloxetine HCl (Duloxetine Hcl 20 Mg Capsule.Dr) 40 mg PO DAILY [facility] Last Admin: 01/21/25 12:09 Dose: 40 mg Hydroxyzine HCl (Hydroxyzine Hcl 50 Mg Tablet) 50 mg PO Q6H PRN PRN Reason: mild anxiety Magnesium Hydroxide (Milk Of Magnesia 30 Ml Oral.Susp) 30 ml PO DAILY PRN PRN Reason: Constipation Nicotine (Nicotine 21 Mg Patch.Td24) 21 mg TRANSDERMA DAILY [facility] Last Admin: 01/21/25 10:50 Dose: Not Given Nicotine Polacrilex (Nicotine Polacrilex 2 Mg Gum) 4 mg BUCCAL Q2H PRN PRN Reason: Nicotine Cravings Risperidone (Risperidone 1 Mg Tablet) 1 mg PO BID [facility] Last Admin: 01/21/25 10:50 Dose: Not Given Allergies Allergies Allergy/AdvReac Type Severity Reaction Status Date / Time No Known Allergies Allergy Verified 01/19/25 16:26 Assessment & Plan Assessment & Plan (1) PTSD (post-traumatic stress disorder): Status: Acute Code(s): F43.10 - Post-traumatic stress disorder, unspecified (2) Cocaine use disorder: Status: Acute Code(s): F14.10 - Cocaine abuse, uncomplicated (3) Psychosis: Status: Acute Code(s): F29 - Unspecified psychosis not due to a substance or known physiological condition Plan 01/20: taper cymbalta. schedule risperidone. DC topamax and start depakote. supportive care for substance withdrawal. 01/21: mild improvement today. continue current mgmt. Reason for continued inpatient stay Substantial Risk for: inability to function Time Spent With Patient Time: Total time managing care of this patient today ____ minutes.
[2025-01-21 21:10] VITALS: BP 113/59; PULSE 69; RESP 16; TEMP 37.1; O2SAT 97
--- NOTE | 2025-01-22 12:22 | PC.NURSE ---
Patient slept in late this morning, attempted to pass morning medications 3 separate times to the pt (all to which patient refused and continued to sleep). Patient awake later in the afternoon asking for her morning medications. Provider Brennan Medina notified and approved of meds to be given.
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
[2025-01-22 20:00] VITALS: RESP 16
[2025-01-23 07:47] VITALS: BP 109/65; PULSE 65; TEMP 35.9; O2SAT 97
[2025-01-23 07:55] LABS: Hemoglobin A1C 107.1196 umol/L; Total Hemoglobin (HGBA1C) 3080.7651 umol/L
[2025-01-23 08:02] LABS: Alanine Aminotransferase 18 U/L (0-31); Albumin Level 4.0 g/dL (3.5-5.0); Alkaline Phosphatase 68 U/L (39-117); Anion Gap 11 (12-20); Aspartate Amino Transferase 16 U/L (5-31); Blood Urea Nitrogen 23 mg/dL (9-16); Calcium 9.0 mg/dL (8.4-10.2); Carbon Dioxide 28 mmol/L (22-29); Chloride 105 mmol/L (96-108); Cholesterol 148 mg/dL (<200); Creatinine Clr Calc Pharmacy 96.1; Estimated Glomerular Filt Rate > 60; HDL Cholesterol 52 mg/dL (>40); Potassium 4.4 mmol/L (3.3-5.1); Sodium 140 mmol/L (135-145); Total Protein 6.6 g/dL (6.5-8.0); Triglycerides 40 mg/dL (<150)
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
[2025-01-23 20:00] VITALS: RESP 14
--- NOTE | 2025-01-24 11:18 | PC.NURSE ---
Patient engages easily. Reports she is ready to go, I have a mission to complete . Declines to review paperwork stating she needs to go. Denies SI/HI plan or intent at this time. No belongings with patient. Discharge paperwork provided to patient. Crisis numbers provided to patient. Follow up appointment (walk in clinic information) provided to patient. Resource booklet provided to patient.
== END 2025-01-24 10:42 | disposition home or self-care (01) | DRG 751 ==
LOC: HO.ED 17:09 → HO.PADLT16 22:41
PROVIDERS: Registered Nurse Emergency; Admitting Provider Nurse Practitioner Psychiatric/Mental Health; Emergency Provider Emergency Medicine; Visit Provider Psychiatry & Neurology Psychiatry
DX: F29 Unspecified psychosis not due to a substance or known physiological condition (principal); R45.851 Suicidal ideations; M32.9 Systemic lupus erythematosus, unspecified; F43.10 Post-traumatic stress disorder, unspecified; F14.10 Cocaine abuse, uncomplicated; F17.210 Nicotine dependence, cigarettes, uncomplicated; Z59.02 Unsheltered homelessness; Z71.6 Tobacco abuse counseling; Z79.899 Other long term (current) drug therapy
CPT/HCPCS: 36415; 80053; 80061; 80307; 81001; 83036; 84702; 85025; 87086; 87147; 93005; 99285; S9485

== ENCOUNTER → 2025-01-19 21:40 | Outpatient (BNV) | payer OTHER, SELFPAY | PROVIDERS: Admitting Provider Nurse Practitioner Psychiatric/Mental Health; Emergency Provider Emergency Medicine; Visit Provider Internal Medicine Cardiovascular Disease | DX: Z13.6 Encounter for screening for cardiovascular disorders (principal) | CPT/HCPCS: 93010 ==

== ENCOUNTER → 2025-01-19 22:28 | Outpatient (BNV) | payer OTHER, SELFPAY | PROVIDERS: Admitting Provider Nurse Practitioner Psychiatric/Mental Health; Emergency Provider Emergency Medicine; Visit Provider Psychiatry & Neurology Psychiatry | DX: F29 Unspecified psychosis not due to a substance or known physiological condition (principal); F14.10 Cocaine abuse, uncomplicated; F43.11 Post-traumatic stress disorder, acute | CPT/HCPCS: 99231; 99232; 99233 ==